=== PATIENT | male | born 1990 | race Caucasian/White ===

== ENCOUNTER 2023-10-02 13:14 | Emergency (ER) | payer OTHER ==
[~2023-10-02] VITALS: Ht 177.8 cm; Wt 75.0 kg
[2023-10-02] MEDS: normal saline 1000ML IV soln IVB ONE (13:43)
[2023-10-02 14:13] LABS: BASOPHILS % (AUTO) 0.3 % (0-1); EOSINOPHILS # (AUTO) 0.1 X10'3 (0-0.9); EOSINOPHILS % (AUTO) 1.5 % (0-6); HEMATOCRIT 44.2 % (42.0-52.0); HEMOGLOBIN 15.2 g/dl (14.0-17.9); LYMPHOCYTES # (AUTO) 1.6 X10'3 (1.1-4.8); LYMPHOCYTES % (AUTO) 19.5 % (21-51); MEAN CORPUSCULAR HEMOGLOBIN 31.1 PG (27.0-31.0); MEAN CORPUSCULAR HGB CONC 34.4 g/dL (33.0-36.5); MEAN CORPUSCULAR VOLUME 90.4 FL (78-98); MEAN PLATELET VOLUME 7.9 FL (7.4-10.4); MONOCYTES # (AUTO) 0.5 X10'3 (0-0.9); MONOCYTES % (AUTO) 6.7 % (2-12); NEUTROPHILS # (AUTO) 5.8 X10'3 (1.8-7.7); PLATELET COUNT 306 X10'3 (140-440); RED BLOOD COUNT 4.89 X10'6 (4.70-6.10); RED CELL DISTRIBUTION WIDTH 12.2 % (11.5-14.5); WHITE BLOOD COUNT 8.1 X10'3 (4.5-11.0)
[2023-10-02 14:26] LABS: ALBUMIN 4.4 G/DL (3.4-5.0); ANION GAP 14 (8-16); BLOOD UREA NITROGEN 10 MG/DL (7-18); CALCIUM 8.9 MG/DL (8.5-10.1); CHLORIDE 102 MMOL/L (99-107); CREATININE 1.11 MG/DL (0.60-1.10); ETHANOL < 10 MG/DL (<10); GLUCOSE 99 MG/DL (70-104); LIPASE 25 U/L (16-77); MAGNESIUM 2.2 MG/DL (1.5-2.4); POTASSIUM 4.3 MMOL/L (3.5-5.1); SODIUM 140 MMOL/L (135-145); TOTAL CARBON DIOXIDE 24.5 MMOL/L (24-32); eCRCL 100 ML/MIN; eGFR 77 ML/MIN
[2023-10-02 16:31] LABS: BILIRUBIN,URINE NEGATIVE (Neg); CLARITY,URINE CLEAR (Clear); COLOR,URINE YELLOW (Yellow); GLUCOSE, URINE NEGATIVE (Neg); KETONES,URINE NEGATIVE (Neg); LEUKOCYTE ESTERASE ,URINE NEGATIVE (Neg); NITRITES, URINE NEGATIVE (Neg); OCCULT BLOOD,URINE TRACE-INTACT (Neg); PH,URINE 5.5 (4.8-8.0); PROTEIN,URINE NEGATIVE (Neg)
[2023-10-02 16:38] LABS: URINE AMPHETAMINE SCREEN POSITIVE (Neg); URINE BARBITUATE SCREEN NEGATIVE (Neg); URINE BENZODIAZEPINES SCREEN POSITIVE (Neg); URINE CANNABINOID SCREEN POSITIVE (Neg); URINE COCAINE SCREEN NEGATIVE (Neg); URINE METHADONE SCREEN NEGATIVE (Neg); URINE OPIATE SCREEN NEGATIVE (Neg); URINE PHENCYCLIDINE SCREEN NEGATIVE (Neg)
[2023-10-02 16:41] LABS: UA COLLECTION TYPE CLN CATCH MIDSTREAM
[2023-10-02 16:44] LABS: SQUAMOUS EPITHELIAL CELL,UR FEW /LPF (FEW)
[2023-10-02 16:45] LABS: BACTERIA,URINE FEW /HPF (Neg); RBC,URINE 0-2 /HPF (0-2); WBC,URINE 0-4 /HPF (0-4)
[2023-10-02 17:54] LABS: THYROID STIMULATING HORMONE 0.77 ulU/ml (0.34-4.50)
[2023-10-02 23:24] LABS: SALICYLATE 1.6 MG/DL (4.0-20.0)
[2023-10-02 23:27] LABS: ACETAMINOPHEN < 2.0 UG/ML (10-30)
[2023-10-03] MEDS ORDERED: AMPH10TA2 PO (08:46)
[2023-10-03] MEDS ORDERED: PROP10TA10 PO (08:46)
[2023-10-03] MEDS ORDERED: GABA600T13 PO (08:46)
[2023-10-03] MEDS ORDERED: DEXT25CA PO (08:46)
[2023-10-03] MEDS: LORazepam 2 mg/ml vial IM ONE (10:14)
[2023-10-03] MEDS: haloperidol lactate 5mg/ml inj IM ONE (10:14)
[2023-10-03] MEDS: dextroamphetamine/amphetamine ER 5 MG CAP.ER.24H PO SCH (12:00)
[2023-10-03] MEDS: gabapentin 300mg capsule PO SCH (16:00)
[2023-10-03] MEDS: propranolol 10mg tablet PO SCH (19:41)
[2023-10-04] MEDS: TYPE IN GENERIC & BRAND NAME OF PATIENT MED STRENGTH & FORM PO SCH (08:00)
[2023-10-04 17:35] VITALS: BP 119/74; PULSE 81; RESP 16; TEMP 98.2; O2SAT 99
== END 2023-10-04 19:26 ==
LOC: ER 13:14
DX: T42.4X1A Poisoning by benzodiazepines, accidental (unintentional), initial encounter (principal); F19.10 Other psychoactive substance abuse, uncomplicated; J96.92 Respiratory failure, unspecified with hypercapnia; G93.41 Metabolic encephalopathy; F41.9 Anxiety disorder, unspecified; F32.A Depression, unspecified; Z20.822 Contact with and (suspected) exposure to COVID-19; Y92.89 Other specified places as the place of occurrence of the external cause
CPT/HCPCS: 36415; 71045; 80048; 80305; 80320; 80329; 81001; 83690; 83735; 84443; 85025; 87811; 93005; 96360; 96372; 99291; J1630; J2060; J7030; 99285